=== PATIENT | female | born 1995 | race American Indian/Alaskan Native ===

== ENCOUNTER 2016-08-12 12:43 | Emergency (ER) | payer OTHER ==
[2016-08-12 12:56] VITALS: BP 126/83
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
== END 2016-08-12 14:35 | disposition other institution (70) ==
LOC: ED 12:43
DX: T74.21XA Adult sexual abuse, confirmed, initial encounter (principal)
CPT/HCPCS: 99284